=== PATIENT | male | born 1985 | race Hispanic/Latino ===

== ENCOUNTER 2025-04-20 17:58 | Emergency (ER) | payer OTHER, SELFPAY ==
[2025-04-20] MEDS ORDERED: Dexamethasone 10 MG/ML VIAL ONE (20:20)
[2025-04-20] MEDS ORDERED: HYDROcodone/Acetaminophen 5/325 mg Tablet ONE ×2 (20:21→21:00)
[2025-04-20] MEDS ORDERED: Orphenadrine Citrate 100 MG ER.TAB ONE (21:00)
== END 2025-04-20 21:30 | disposition home or self-care (01) ==
LOC: EDBD → ERS 17:58
DX: M54.42 Lumbago with sciatica, left side (principal)
CPT/HCPCS: 99283; J1100